=== PATIENT | female | born 1960 | race African-American/Black ===

== ENCOUNTER 2023-10-19 02:24 | Observation (INO) | payer BC ==
[2023-10-19 04:15] VITALS: BMI 28.2
[2023-10-19] MEDS ORDERED: Nitroglycerin 0.4 MG TAB (25 Tab Bottle) SL PRN (06:50)
[2023-10-19] MEDS ORDERED: Acetaminophen 325 MG TAB PO PRN (06:50)
[2023-10-19] MEDS ORDERED: Ondansetron PF 4 MG/2 ML Vial IVP PRN (06:50)
[2023-10-19] MEDS ORDERED: Pregabalin 25 MG CAP PO PRN (07:33)
[2023-10-19 08:11] LABS: #Basophils 0.1 thou/uL (0.0-0.2); #Eosinphils 0.2 thou/uL (0.0-0.7); #Monocytes 0.6 thou/uL (0.11-0.59); #Neutrophils 3.4 thou/uL (1.40-6.50); %Basophils 1.1 % (0.0-1.0); %Eosinophils 2.9 % (0.0-10.0); %Monocytes 9.2 % (0.0-10.0); %Neutrophils 53.8 % (42.0-75.0); Hematocrit 38.3 % (36.0-47.0); Hemoglobin 12.3 g/dL (12.0-16.0); Mean Corpuscular HGB CONC 32.1 g/dL (32.0-36.0); Mean Corpuscular Hemoglobin 28.3 pg (27.0-31.0); Mean Corpuscular Volume 88.2 fl (78.0-98.0); Mean Platelet Volume 9.6 fL (7.4-10.4); Platelet Count 356 10x3/uL (130-400); RBC Distribution Width 13.5 % (11.5-14.5); Red Blood Cell (RBC) Count 4.34 mill/uL (4.20-5.40); White Blood Cell (WBC) Count 6.2 10x3/uL (4.8-10.8)
[2023-10-19 08:32] LABS: Anion Gap 12 mmol/L (10-20); BUN (Urea Nitrogen) 11 mg/dL (9.8-20.1); Calc. Creatinine Clearance 106 mL/min (70-130); Calcium 9.3 mg/dL (7.8-10.44); Carbon Dioxide 27 mmol/L (23-31); Cardiac Risk 3.8 (Less than 4.5); Chloride 106 mmol/L (98-107); Cholesterol 186 mg/dl (< 200 Desired); Estimated GFR 99; Glucose 89 mg/dL (80-115); HDL Cholesterol 49 mg/dL (>60 Neg Risk); LDL Cholesterol, Calculated 127 mg/dL; Potassium 3.8 mmol/L (3.5-5.1); Sodium 141 mmol/L (136-145); Triglycerides 49 mg/dL (Less than 150)
[2023-10-19 08:36] VITALS: BP 139/67
[2023-10-19 08:44] LABS: Troponin I Less than 0.010 ng/mL (< 0.028)
[2023-10-19] MEDS ORDERED: Amlodipine 10 MG TAB PO SCH (09:00)
[2023-10-19 09:23] VITALS: TEMP 98
[2023-10-19] MEDS ORDERED: ADENOSINE 60 MG/20 ML SDV ONE (11:59)
== END 2023-10-19 15:43 | disposition home or self-care (01) ==
LOC: 2SW 04:10
PROVIDERS: ADMIT Internal Medicine; ATTEND Internal Medicine
DX: I10 Essential (primary) hypertension (principal); Z79.899 Other long term (current) drug therapy
CPT/HCPCS: 78452; 80048; 80061; 84484; 85025; 93017; A9502; G0378; J0153